=== PATIENT | male | born 1960 | race Hispanic/Latino ===

== ENCOUNTER 2017-02-13 05:47 | Day surgery (SDC) | payer OTHER ==
[~2017-02-13] VITALS: Ht 167.6 cm; Wt 90.9 kg
[2017-02-13] VITALS (9 sets, daily range): BP systolic 127–142; BP diastolic 73–82; PULSE 50–63; RESP 15–18; O2SAT 93–98
[~2017-02-13 05:47] MED LIST: ATOR20TA PO; CALC600T12 PO; Lactated Ringer's 1,000 ML IV ONE; METF500T4 PO
[2017-02-13] MEDS ORDERED: Propofol 10,000 mCg/mL 20 mL Inj ONE (05:48)
[2017-02-13] MEDS ORDERED: fentaNYL-PF 50 mCg/mL 2 mL Inj ONE (05:48)
[2017-02-13] MEDS ORDERED: Ondansetron 2 mg/mL 2 mL Inj ONE (05:48)
[2017-02-13] MEDS ORDERED: CeFAZolin Inj 2 GM in IV Premix 1 EACH IV ONE (06:00)
--- NOTE | 2017-02-13 07:25 | PCM.HPANE ---
Patient Data Surgeon Admitting Provider: Attending Provider:Nataliya Chaves MD Primary Care Physician:Sonia Morin MD Other Provider:Chasity Trujilloingham Anesthesia Reason for Visit Right Abnormal Imaging Ht/WT & BMI Height (Feet): 5 Height (Inches): 6 Weight (Kilograms): 90.9 Body Mass Index 32.00 Allergies Coded Allergies: No Known Allergies (Unverified , 02/12/17) Past Anesthesia History Anesthesia History: Denies:: Abnormal Airway, Anesthesia Reactions, Difficult Intubation, Fam Anesthesia Reaction, Fam Malignant Hypertherm, Malignant Hyperthermia Diabetes History Hx Diabetes?: Yes Type of Diabetes: Type II Glycemic Control: Oral Medication Current Bedside Blood Glucose: 136 MRSA MRSA: No Medications Hypertension Medication: No Home Meds Incl Beta Kristi: No Reported Medications Calcium Carbonate (Calcium)600 Mg [id number] Mg PO DAILY 02/12/17 Metformin 500 Mg Asidex940 Mg PO TID Ref 0 07/03/16 Atorvastatin (Lipitor)20 Mg [id number] Mg PO DAILY Ref 0 07/03/16 Discontinued Reported Medications Multivitamin (Multivitamins)1 Each Capsule1 Each PO DAILY 07/04/16 History History of ENT Problems?: No HEENT History: Denies:: Abnormal Airway Difficult Intubation Hearing Problem Denture Type: None Teeth Condition: Within Normal Limits Hx of Heart Problems?: Yes Cardiovascular History: Positive for:: Hypertension (HYPERLIPIDEMIA) Denies:: Heart Murmur Hx of Respiratory Problem?: No Respiratory History: Denies:: Asthma COPD Chest Surgery Cough Dyspnea Emphysema Hemoptysis Oxygen Administration Pneumonia Pulmonary Embolism Tuberculosis Use of C-PAP Machine Use of Inhalers / NEBS Hx Neurologic Problems?: No Neurological History: Denies:: Alzheimer's Disease CVA Dementia Dizziness Headaches Multiple Sclerosis Parkinson's Disease Peripheral Neuropathy Seizures TIA Hx of GI Problems?: No Gastrointestinal History: Denies:: Cirrhosis Diverticulitis Gall Bladder Disease Gastroesphageal Reflux Gastrointestinal Bleeding Heartburn Hepatitis Hiatal Hernia Liver Disease Rectal Bleeding Hx of Problems?: Yes Other Pertinent History: C/OF NOCTURIA Male Hx: Positive for:: Scrotal Mass (RT SPERMATOCELE RT SIDED ABNL IMAGING=CURRENT PROBLEM) Denies:: Prostate Problems Testicular Surgery Skin History: Denies:: History Skin Disorders? Pressure Ulcers Hx Musculoskeletal Problems?: Yes Musculoskeletal History: Denies:: Musculoskeletal Trauma (C/OF JOINT PAIN) Hx of Psycho/Social Problems?: No Hx Surgeries?: No Hx Any Other Health Problems?: No Other History: Denies:: Cancer Endocrine Disease Hospitalization Thyroid Disease History Blood Transfusions: Denies:: Blood Transfusions Hx Diabetes: YesBedside Blood Glucose: 136 Hx Alcohol Use: NoHave You Smoked inLast 12 mo: No Stop/Bang S-Snoring: Do You Snore Loudly: No T-Tired: feel tired, fatigued: No O-Obsered: Observed not breath: No P-Blood Pressure: treated: Yes B- Body Mass Index > 35 kg/m2: No A- Age over 50: Yes N- Neck Large Circumference: No G- Gender Male: Yes HALEY Total Score: 3 Risk Assessment Category Category 1A: Patient has history of documented sleep apnea, and HAS NOT received any narcotic, sedative or anesthesia administration during this stay. Category 1B: Patient has history of documented sleep apnea, and HAS received any narcotic , sedative or anesthesia administration during this stay Category 2: Patient has SUSPECTED Obstructive Sleep Apnea, and HAS received any narcotic , sedative or anesthesia administration during this stay. Category 3: Patient has SUSPECTED Obstructive Sleep Apnea and HAS NOT received narcotic, sedative or anesthesia administration during this stay. Category 4: Outpatient in Procedural Areas with known sleep apnea or who screen positive for High Risk via the STOP/BANG questionnaire. Exam Exam Vital Signs Vital Signs Date Time Temp Pulse Resp B/P Pulse Ox O2 Delivery O2 Flow Rate FiO2 02/13/17 06:03 36.4 60 16 142/80 97 Room Air General Appearance: Alert, Oriented X3, Cooperative, No Acute Distress HEENT/AIRWAY: MP 2 Lungs: Clear to Auscultation, Normal Air Movement Heart: Exam Unremarkable, Regular Rate/Rhythm, No Murmurs/Rubs/Gallops Meds/Labs/Diagnostics Admission Meds Current Medications Lactated Ringer's (Lr) 1,000 ml @ 120 mls/hr Q8H20M ONCE IV Last administered on 02/13/17t 05:55; Start 02/13/17 at 00:58; Stop 02/13/17 at 09:17 Bedside Blood Glucose: 136 Plan Impression Patient chart reviewed, patient interviewed and anesthestic plan with risks, benefits, and alternatives discussed, and informed consent obtained. ASA Physical Status: ASA2 Mod Systemic Disease Anesthetic Plan: GA Bene/Risks/Altern/Consents: Yes HP Complete Prior to Induction: Yes Carlton Valera MD Feb 13, 2017 07:10
[2017-02-13] MEDS ORDERED: Bupivacaine-MPF 0.5% W/EPI 30 mL Inj INJ ONE (07:35)
[2017-02-13] MEDS ORDERED: Lactated Ringer's 1,000 ML IV SCH (07:39)
[2017-02-13] MEDS ORDERED: Lactated Ringer's 500 ML IV PRN (07:39)
[2017-02-13] MEDS ORDERED: EPHEDrine Sulfate 50 mg/mL Inj IVPUSH PRN (07:40)
[2017-02-13] MEDS ORDERED: Atropine 0.4 mg/mL Inj IVPUSH PRN (07:40)
[2017-02-13] MEDS ORDERED: Labetalol 5 mg/mL 4 mL Inj IV PRN (07:40)
[2017-02-13] MEDS ORDERED: Ondansetron 2 mg/mL 2 mL Inj IVPUSH PRN (07:40)
[2017-02-13] MEDS ORDERED: Phenylephrine 10,000 mCg/mL Inj IVPUSH PRN (07:40)
[2017-02-13] MEDS ORDERED: fentaNYL-PF 50 mCg/mL 2 mL Inj IVPUSH PRN (07:40)
[2017-02-13] MEDS ORDERED: Dexamethasone 4 mg/mL Inj IVPUSH PRN (07:40)
[2017-02-13] MEDS ORDERED: MetoCLOpramide 5 mg/mL 2 mL Inj IVPUSH PRN (07:40)
[2017-02-13] MEDS ORDERED: HYDROmorphone 1 mg/mL Inj IVPUSH PRN (07:40)
[2017-02-13] MEDS ORDERED: Ondansetron 8 mg ODT Tablet PO PRN (08:25)
[2017-02-13] MEDS ORDERED: HYDROcodone-APAP 5-325 mg Tablet PO PRN (08:25)
--- NOTE | 2017-02-13 08:31 | PCM.ANEP1 ---
Post Anesthesia Phase 1 PACU Phase 1 Assessment Vital Signs Vital Signs Date Time Temp Pulse Resp B/P Pulse Ox O2 Delivery O2 Flow Rate FiO2 02/13/17 08:25 53 15 127/80 93 Room Air 02/13/17 08:20 56 18 130/73 93 Room Air 02/13/17 08:17 37.2 63 15 140/78 94 Room Air 02/13/17 06:03 36.4 60 16 142/80 97 Room Air Anesthetic Administered: GA Level of Alertness: Awake, talking ELIAS's with Equal Strength: Yes Pain: No Nausea or Vomiting: No Lungs: Clear to Auscultation, Normal Air Movement Complications: No Patient Instructions Provided: Yes Carlton Valera MD Feb 13, 2017 08:31
--- NOTE | 2017-02-14 10:34 | OP ---
[address] [address] OPERATIVE REPORT PATIENT: GURMEET GREENWOOD : 1960 MR#: [id number] ADMIT: 02/13/2017 JOB ID: [id number] DATE OF SURGERY: 02/13/2017 PROCEDURE: Right radical orchiectomy. SURGEON: Nataliya Chaves M.D. ANESTHESIA: General. PREOPERATIVE DIAGNOSIS(ES): Radiological abnormality to right testis. POSTOPERATIVE DIAGNOSIS(ES): Radiological abnormality to right testis. INDICATIONS: The patient is a 66-year-old gentleman with an essentially incidentally noted abnormality to his right testis. He was being evaluated for what turned out to be completely benign epididymal cyst and ultrasound noted some infiltrative versus postinflammatory changes to the right testis. Unable to determine the etiology benign versus malignant, both a possibility. Followed over time, persistent in all imaging studies. He had numerous ultrasounds done and ultimately elected conservative management to remove the testis with knowledge that this could have turned out to have been a benign process versus an infiltrative cancer process which could be treated if diagnosed. PROCEDURE IN DETAIL: After appropriate informed consent was obtained, the patient was brought to the operating room where he received IV Ancef prior to onset of the procedure. SCDs were placed. Adequate general anesthesia induced. He was left in the supine position. All pressure points carefully padded. Cleaned, prepped, and draped in the usual sterile fashion. Transverse incision was made overlying the right inguinal canal. Given the diminutive size of the testis, completely normal, somewhat small, we elected to go ahead and deliver this up without incising the fascia. This was done. The gubernaculum was removed. The cord itself was freed up. A clamp was placed over the cord itself prior to delivering the testis. It was divided in two sections using multiple clamps, two stick ties and free ties left long to identify the distal end if needed in the future and hemostasis was excellent. The wound was irrigated out copiously with antibiotic solution and then closed with a layer of 2-0 Vicryl suture, 4-0 Monocryl for the skin and benzoin and Steri-Strips. Marcaine plain was used for analgesia postop. He was awakened, taken in stable condition to the postanesthesia care unit.
--- NOTE | 2017-02-16 15:17 | PATH ---
SURGICAL PATHOLOGY Attending Physician:Nataliya Chaves MD CASE STATUS: Signed Out PATIENT NAME: KRISTIE GREENWOOD PID: [id number] : 1960 DATE COLLECTED:02/13/2017 18:47 SPECIMEN: Testis CLINICAL HISTORY: ABNORMAL IMAGING OF RIGHT GENITOURINARY SYSTEM INCIDENTALLY NOTED INFILTRATIVE CHANGES TO TESTIS ON US. STABLE FOR REPEATED US OVERTIME. (SCAN AT [facility] FOR SPERMATOCELE BY PIP) READ INFLAMMATORY POST US INFILTERATIVE. CANNOT R/O MALIGNANCY. PT ELECTED R RAD ORCHIECTOMY 1). RIGHT TESTICLE FINAL DIAGNOSIS: 1.RADICAL ORCHIECTOMY SPECIMEN: BENIGN EPIDIDYMAL CYST CONSISTENT WITH SPERMATOCELE WITH ASSOCIATED ADJACENT SUBCAPSULAR FIBROUS SCARRING WITH OBLITERATION OF TUBULES AND SOME TUBULAR ATROPHY (SEE MICROSCOPIC DESCRIPTION). NEGATIVE FOR MALIGNANCY AND SIGNIFICANT ATYPIA. ICD10 CODE N43.40 GROSS DESCRIPTION: The specimen is received in formalin, labeled with the patient's name, sublabeled as right testicle, weighs 48.3 g, and consists of a testis (3.8 x 3.0 x 2.0 cm), epididymis (3.0 x 1.7 x 0.4 cm), portion of attached spermatic cord (length-1.5 cm, diameter-2.2 cm), and tunica vaginalis. The testicular parenchyma is tyler-pink and spongy. The epididymis is tyler and spongy. The cavity of the tunica vaginalis (4.0 x 3.2 x 3.1 cm) contains clear colorless fluid. The tunica albuginea is pope-white smooth shiny and unremarkable. No nodules, masses or lesions are identified. Ink code: black-resection margin. Section code: (A) resection margin; (B) testicular parenchyma and epididymis, franchise sales representative; (C, D) cavity of the tunica vaginalis, franchise sales representative. 02/14/17 JM MICRO DESCRIPTION: Sections are of testicle, including epididymis and adjacent tissues. There is a large simple benign epididymal cyst consistent with spermatocele. The adjacent testicular tissue shows prominent fibrosis with obliteration of some of the seminiferous tubules immediately beneath the capsule, whereas others are cystically dilated and totally atrophic. The remaining portion of the testicle appears normal with minimal spermatogenesis. There is no evidence for neoplasm of any type. The cause of the fibrotic and atrophic changes are not apparent; however, they may well represent post inflammatory alterations. ICD-9 CODES: CPT CODES: 1: 64583 Electronically Signed Out Russell Lynn MD [facility] [address], [place] [address] Technical component performed at [facility], [facility] [address], [place], [address]
== END 2017-02-13 23:59 | disposition home or self-care (01) ==
LOC: SAS 05:47
PROVIDERS: ATTEND Urology
DX: R93.8 Abnormal findings on diagnostic imaging of other specified body structures (principal); N43.40 Spermatocele of epididymis, unspecified; I10 Essential (primary) hypertension; E78.5 Hyperlipidemia, unspecified; E11.9 Type 2 diabetes mellitus without complications; Z87.891 Personal history of nicotine dependence; Z79.84 Long term (current) use of oral hypoglycemic drugs
CPT/HCPCS: 54530; J0690; J1885; J2405; J3010; J7120